=== PATIENT | female | born 1960 | race Caucasian/White ===

== ENCOUNTER → 2022-11-13 08:11 | Outpatient (CLI) | payer OTHER, SELFPAY ==
--- NOTE | 2022-11-13 08:20 | DI.RAD.S_ITS ---
PROCEDURE: XR KNEE RT 1TO2V INDICATIONS: KNEE PAIN TECHNIQUE: 3 views of the knee were acquired. COMPARISON: None. FINDINGS: Bones: Tricompartmental moderate joint space narrowing with marginal osteophytosis. No fractures or dislocations. No suspicious bony lesions. Soft tissues: No joint effusion. No suspicious soft tissue calcifications. IMPRESSION: Moderate tricompartmental osteoarthritis. Dictated by: Jay Sahni M.D. on 11/13/2022 at 13:10 Approved by: Jay Sahni M.D. on 11/13/2022 at 13:22
--- NOTE | 2022-11-13 08:20 | DI.RAD.S_ITS ---
PROCEDURE: XR KNEE LT 1TO2V INDICATIONS: KNEE PAIN TECHNIQUE: 3 views of the knee were acquired. COMPARISON: None. FINDINGS: Bones: Moderate tricompartmental joint space narrowing with marginal osteophytosis. No fractures or dislocations. No suspicious bony lesions. Soft tissues: No joint effusion. No suspicious soft tissue calcifications. IMPRESSION: No acute finding. Moderate tricompartmental osteoarthritis. Dictated by: Jay Sahni M.D. on 11/13/2022 at 13:09 Approved by: Jay Sahni M.D. on 11/13/2022 at 13:10
== END ==
PROVIDERS: Referring Provider Internal Medicine Cardiovascular Disease; Visit Provider Internal Medicine Cardiovascular Disease
DX: M25.562 Pain in left knee (principal); M25.561 Pain in right knee; M17.0 Bilateral primary osteoarthritis of knee
CPT/HCPCS: 73560

== ENCOUNTER 2025-08-31 10:23 | Emergency (ER) | payer MEDICARE, SELFPAY ==
[2025-08-31] VITALS (24 sets, daily range): BP systolic 127–160; BP diastolic 59–90; PULSE 77–99; RESP 15–23; TEMP 36.8; O2SAT 93–97; BMI 45.7
--- NOTE | 2025-08-31 10:29 | ED_ITS ---
HPI - General Adult
--- NOTE | 2025-08-31 10:29 | ED.GENADULT ---
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 (Negative) Influenza A (RT-PCR) (NEGATIVE) Influenza B (RT-PCR) (NEGATIVE) RSV (PCR) (Negative) Point of Care Testing Glucose POC 205 Point of care testing: Point of Care Testing Glucose POC 205 MDM Narrative Medical decision making narrative: EKG sinus rhythm, no acute ST changes. White count of 6.2 hemoglobin of 15 platelets of 179, electrolytes are appropriate BUN 26 creatinine 0.59 glucose is 183, AST ALT are slightly elevated at 52 and 37 bilirubin and alk-phos are normal, troponins less than 0.012 with a BNP of 25 lipase of 401, ETOH is negative. UDS is negative. 3+ glucose, 1 RBCs 1 white cell 1-5 squamous. Patient refused chest x-ray. Patient received fluids, hydroxyzine and Seroquel. She is feeling a little bit better she does not want anything too strong for anxiety but we would like a benzo. We discussed obtaining chest x-ray but she defers once again, I do not feel that she requires a chest x-ray at this time. She would like to meet with ENVIRONMENTAL SCIENCE TECHNICIAN. 55-year-old female presents with a complaint of persistent anxiety attack. Did have cardiac workup although she refused chest x-ray stating it was not anxiety attack. Patient met with ENVIRONMENTAL SCIENCE TECHNICIAN. During of the evaluation patient is started having some auditory and visual hallucinations. She normally takes Seroquel she was given a dose of that here in the department. On re-evaluation afterwards patient states she does sometimes get hallucinations she states they have been doing well until recently she also notes she has a little bit of SI last night but that has improved. She does note she has a hallucinations intermittently she denies any active intent to harm herself or others. We did discuss if she would be interested inpatient treatment versus outpatient follow up. Patient elects for voluntary placement. Patient has a medically cleared I do think she would benefit from this. 08/31/25, 2300, Neal. 65-year-old female with worsening anxiety, wanting inpatient treatment, voluntary, also with auditory and visual hallucinations, takes Seroquel and was given dose earlier today. Recent suicidal ideation apparently resolved. Screening labs unremarkable, medically cleared, awaiting placement. Assumed interim care. 0015, Patient might be accepted to [facility], awaiting further follow up confirmation, patient made aware. 0100, patient accepted for transfer to [facility]. S transport available in about 1 hour. Discharge Plan Departure Patient Disposition: Xfer Psychiatric Hosp Clinical Impression: Hallucination Prescriptions: No Action hydroxyzine HCl 25 mg tablet 25 mg PO BEDTIME insulin aspart U-100 [Novolog FlexPen U-100 Insulin] 100 unit/mL (3 mL) insulin pen 10 unit SUBCUT TIDWMEAL Patient Comments: [NO ORIGINAL SIG] insulin glargine [Lantus Solostar U-100 Insulin] 100 unit/mL (3 mL) insulin pen 30 unit SUBCUT BEDTIME Patient Comments: [NO ORIGINAL SIG] Jardiance 10 mg tablet 10 mg PO BEDTIME duloxetine 40 mg capsule,delayed release(DR/EC) 40 mg PO .Morning meloxicam 15 mg tablet 15 mg PO BEDTIME propranolol 10 mg tablet 10 mg PO .Morning PRN (Reason: anxiety) metformin 500 mg tablet extended release 24 hr 1,000 mg PO BID prazosin 2 mg capsule 2 mg PO BEDTIME quetiapine 25 mg tablet 50 mg PO BEDTIME rosuvastatin 20 mg tablet 20 mg PO BEDTIME (DME) lancets [OneTouch Delica Plus Lancet] 33 gauge misc MISCELLANEOUS Patient Comments: [NO ORIGINAL SIG] omeprazole 20 mg capsule,delayed release(DR/EC) 20 mg PO BEDTIME PRN (Reason: acid reflux)
[2025-08-31] MEDS: SODIUM CHLORIDE 0.9% 1,000 ML 999 ML IV (10:46)
[2025-08-31 10:48] LABS: Add Manual Diff / Slide Review NO; Hematocrit 44.8 % (36-46); Hemoglobin 15.0 g/dL (12.0-16.0); Lymphocytes Absolute Auto 800 /uL (1100-4500); Mean Corpuscular HGB Conc 33.5 % (30-36); Mean Corpuscular Hemoglobin 27.7 PG (26-34); Mean Corpuscular Volume 82.8 fL (80-100); Platelet Count 179 X10^3/uL (150-400)
--- NOTE | 2025-08-31 10:52 | EKG_ITS ---
[facility]
[2025-08-31 11:06] LABS: Alanine Aminotransferase 37 IU/L (<35); Albumin 4.5 g/dL (3.5-5.0); Albumin Globulin Ratio 1.6 (1.0-2.8); Alkaline Phosphatase 68 U/L (38-126); Blood Urea Nitrogen 26 mg/dL (7-17); Calcium 9.6 mg/dL (8.4-10.2); Carbon Dioxide 26 mmol/L (22-32); Chloride 104 mmol/L (98-107); Estimated Glomerular Filt Rate > 60 mL/min (>60); Globulin 2.9 g/dL (1.7-4.1); Glucose 183 mg/dL (70-99); HEMOLYSIS < 15 (0-50); Lipase 401 U/L (23-300); Magnesium 1.8 mg/dL (1.6-2.3); Potassium 3.7 mmol/L (3.4-5.1); Sodium 139 mmol/L (137-145); Total Protein 7.4 g/dL (6.3-8.2)
[2025-08-31 11:15] LABS: NT-proBNP (BNP-Adult 18+) 25 pg/mL (<125); Troponin I < 0.012 ng/mL (0.01-0.034)
--- NOTE | 2025-08-31 12:17 | PC.NURSE ---
Kendall yelling from patient room NO STOP IT GO AWAY, LEAVE ME ALONE immediately entered room, no one was present in the room. Patient very tearful upon entering the room asked who she was yelling at No one, I am fine leave me alone Offered patient tissues, asked if she was feeling safe patient said yes. Patient more comfortable with door open.
[2025-08-31 14:32] LABS: Appearance Urine UA CLEAR; Bilirubin Urine UA NEGATIVE (NEGATIVE); Color Urine UA YELLOW; Glucose Urine UA 3+ g/dL (Negative); Ketones Urine UA NEGATIVE (NEGATIVE); Leukocyte Esterase Urine UA NEGATIVE (NEGATIVE); Nitrite Urine UA NEGATIVE (Negative); Occult Blood Urine UA NEGATIVE (Negative); Protein Urine UA NEGATIVE (Negative); Specific Gravity Urine UA 1.025 (1.000-1.035); Urobilinogen Urine UA 0.2 E.U./dL (0.2)
[2025-08-31 14:33] LABS: Ethanol (ETOH) < 10 mg/dL (<10)
[2025-08-31 14:44] LABS: pH Urine UA 5.5 (4.5-8.0)
[2025-08-31 14:48] LABS: Culture Indicated Urine Cult Not Indicated
[2025-08-31 14:49] LABS: UR Morphine/Opiate cutoff 300 Negative (Negative); Ur Specific Gravity Normal (Normal); Urine MDMA Negative (Negative); Urine Methamphetamines Negative (Negative); Urine Tetrahydrocannabinol Negative (Negative); Urine Tricyclic Antidepressant Negative (Negative)
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
[2025-08-31 16:17] LABS: COVID-19 CEPHEID 4-PLEX PCR Negative (Negative); Influenza A - CEPHEID Flu A NEGATIVE (NEGATIVE); Influenza B - CEPHEID Flu B NEGATIVE (NEGATIVE)
--- NOTE | 2025-08-31 19:04 | CM.SWNOTE ---
ED ELECTRIC DOLLY OPERATOR Note ELECTRIC DOLLY OPERATOR called [facility] intake, it is reported that they could not take patient due to patient's FWW walker. Patient states that she can ambulate throughout the unit without her walker, ELECTRIC DOLLY OPERATOR requests [facility] to re-evaluate and they determine that they will decline patient. ELECTRIC DOLLY OPERATOR called [facility] it was reported that they have beds and could review patient, ELECTRIC DOLLY OPERATOR faxes clinicals for review. [facility] calls back and reports that the provider decline patient due to not meeting acuity for their unit, and believes patient would meet criteria for crisis triage. ELECTRIC DOLLY OPERATOR calls [facility], it is reported that they have beds, ELECTRIC DOLLY OPERATOR faxes clinicals for review. ELECTRIC DOLLY OPERATOR calls for update and they report that they are still reviewing patient. ELECTRIC DOLLY OPERATOR provides main ED phone number to [facility] intake. ELECTRIC DOLLY OPERATOR provides patient housing, food and basic needs resources. Patient has been sleeping while in the ED most of the day. ED team to continue to seek inpatient bed for patient, ED ELECTRIC DOLLY OPERATOR and/or ED provider to re-evaluate patient to determine alternative safe discharge plan. Michelle Christian, RHIC SYSTEMS SAFETY ENGINEER
[2025-08-31] MEDS: INSULIN GLARGINE 100 UNIT/ML 3ML PEN 30 UNIT SUBCUT (23:42)
[2025-08-31] MEDS: ATORVASTATIN 20 MG TABLET 40 MG PO (23:44)
[2025-08-31] MEDS: PRAZOSIN 1 MG CAPSULE 2 MG PO (23:44)
[2025-08-31] MEDS: MELOXICAM 7.5 MG TABLET 15 MG PO (23:45)
--- NOTE | 2025-09-01 01:29 | PC.NURSE ---
Report given to CHIVO Leach at [facility] Rpt#[phone].
[2025-09-01 02:08] VITALS: BP 124/64; PULSE 88; RESP 17; TEMP 36.6; O2SAT 95
[2025-09-02 06:37] LABS: Labcorp Creatine Kinase MB 1.7 ng/mL (0.0-5.3)
== END 2025-09-01 02:16 ==
PROVIDERS: Emergency Medicine; Emergency Provider Emergency Medicine
DX: R44.0 Auditory hallucinations (principal); R44.1 Visual hallucinations; F41.9 Anxiety disorder, unspecified
CPT/HCPCS: 36415; 80053; 80305; 80320; 81001; 82553; 82962; 83690; 83735; 83880; 84484; 85025; 87637; 93005; 96360; 96361; 96366; 96372; 99284; A9270; J7030